=== PATIENT | female | born 1985 | race Caucasian/White ===

== ENCOUNTER 2018-12-15 09:32 | Observation (INO) | payer SELFPAY ==
[2018-12-15] MEDS: NORMAL SALINE 1000 ML 1,000 ML IV PRN ×2 (09:45→10:45)
[2018-12-15] MEDS ORDERED: NORMAL SALINE 250 ML IV PRN ×3 (09:52→19:17)
[2018-12-15 10:02] LABS: ABSOLUTE BASOPHILS # (AUTO) 0.1 10^3/uL (0.0-0.2); ABSOLUTE EOSINOPHILS # (AUTO) 0.3 10^3/uL (0.0-0.6); ABSOLUTE LYMPHOCYTES (AUTO) 2.4 10^3/uL (0.5-4.7); ABSOLUTE MONOCYTES (AUTO) 0.5 10^3/uL (0.1-1.4); ABSOLUTE NEUT (AUTO) 7.8 10^3/uL (1.7-8.2); BASOPHILS % (AUTO) 0.8 % (0-2); HEMATOCRIT 35.2 % (36.0-47.0); LYMPHOCYTES % (AUTO) 21.8 % (13-45); MEAN CORPUSCULAR HEMOGLOBIN 29.2 pg (27.0-33.4); MEAN CORPUSCULAR HGB CONC 34.1 g/dL (32.0-36.0); MEAN CORPUSCULAR VOLUME 86 fl (80-97); MONOCYTES % (AUTO) 4.1 % (3-13); PLATELET COUNT 328 10^3/uL (150-450); RED BLOOD COUNT 4.11 10^6/uL (3.72-5.28); SEGMENTED NEUTROPHILS % (AUTO) 70.3 % (42-78); TOTAL CELLS COUNTED % (AUTO) 100 %; WHITE BLOOD COUNT 11.1 10^3/uL (4.0-10.5)
[2018-12-15 10:10] LABS: INTERNATIONAL RATION (INR) 0.96; PROTHROMBIN TIME 13.2 SEC (11.4-15.4)
--- NOTE | 2018-12-15 10:22 | ER Document Report ---
ED General - General Chief Complaint: Vomiting Stated Complaint: DIZZINESS Time Seen by Provider: 12/15/18 09:51 - HPI Notes: Patient is a 33-year-old female that presents to the emergency department for chief complaint of hemoptysis and vaginal bleeding. Patient reports 3 episodes of bright red hemoptysis over the last week. She states that it is streaky without clots. She denied any coffee-ground emesis or history of upper GI bleeding in the past. Patient reports being and has had persistent nausea with this . She is at 12 weeks gestation with a due date of 06/29/19. Patient states she did have an ultrasound performed at another facility but when I asked where she states "I do not want to talk about this anymore". Patient will not tell me if it was another emergency room or the health department. She has not seen [employer] for this current . 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 Patient states she has not had any issues with her anemia in the last 2 years. She was on iron previously but was taken off of it. She reports a total of 28 blood transfusions 2 years ago during the issues with the tumor. She has had myomectomy which she states resolved a lot of her vaginal bleeding issues. She denied any history of cancer. Patient states last night she started having vaginal bleeding and today the bleeding has increased significantly and she is now passing blood clots as well. Past Medical History: Anemia Past Surgical History: Myomectomy Social History: Denies drugs alcohol and tobacco Family History: Reviewed and noncontributory for presenting illness Allergies: Reviewed, see documented allergy list. REVIEW OF SYSTEMS: CONSTITUTIONAL : No fever No chills No diaphoresis No recent illness EENT: No vision changes No congestion No sore throat CARDIOVASCULAR: No chest pain No palpitations RESPIRATORY: No shortness of breath No cough No difficulty breathing GASTROINTESTINAL: No abdominal pain nausea vomiting No diarrhea GENITOURINARY: No dysuria Vaginal bleeding No hematuria No difficulty urinating MUSCULOSKELETAL: No back pain No leg pain No arm pain SKIN: No rashes No lesions LYMPHATIC: No swollen, enlarged glands. NEUROLOGICAL: No lightheadedness No headache No weakness No paresthesias PSYCHIATRIC: No anxiety No depression PHYSICAL EXAMINATION: Vital signs reviewed, nursing noted reviewed. GENERAL: Well-appearing, obese and in moderate acute distress. HEAD: Atraumatic, normocephalic. EYES: Eyes appear normal, extraocular movements intact, sclera anicteric, conjunctiva are normal without paler. ENT: nares patent, oropharynx clear without exudates. Dry mucous membranes. NECK: Normal range of motion, supple without lymphadenopathy LUNGS: Breath sounds clear to auscultation bilaterally and equal. No wheezes rales or rhonchi. Tachypneic with no retractions HEART: Tachycardic rate and regular rhythm without murmurs, +2/4 bilateral radial pulses ABDOMEN: Soft, nontender, no palpable uterus, no rebound, guarding, or rigidity. No masses appreciated. : Normal external genitalia, active bright red vaginal bleeding with large blood clots, unable to visualize cervical loss due to bleeding, no uterine tenderness EXTREMITIES: Nontender, good range of motion, trace pretibial edema NEUROLOGICAL: No focal neurological deficits. Moves all extremities spontaneously Motor and sensory grossly intact on exam. PSYCH: Anxious and agitated SKIN: Warm, Dry, normal turgor, no rashes or lesions noted on exposed skin - Related Data Allergies/Adverse Reactions: ceftriaxone [From Rocephin] Allergy (Verified 12/15/18 09:36) Past Medical History - Social History Smoking Status: Never Smoker Family History: Reviewed & Not Pertinent Physical Exam - Vital signs Vitals: Temp Pulse BP Pulse Ox 99.0 F 181 H 73/38 L 100 12/15/18 09:40 12/15/18 09:40 12/15/18 09:40 12/15/18 09:40 Course - Re-evaluation Re-evalutation: 12/15/18 10:14 Vitals reviewed. Nursing notes reviewed. Patient is tachycardic at presentation. 2 large peripheral IVs were obtained, she was placed on the monitor, and started on IV hydration. 12/15/18 10:22 After 500 mL normal saline bolus patient's heart rate has improved to 125. Her blood pressure has remained stable. Pelvic exam does show active bleeding with large clots consistent with miscarriage. Patient's hemoglobin is stable at 12. She is mentating appropriately and appears less anxious than initial exam. 12/15/18 11:36 Patient reevaluated. Her heart rate is 136. She has received 1500 mL's of normal saline. Patient still feeling very lightheaded and has continued to have a large amount of vaginal bleeding. I discussed her care with Dr. Melgar who will come evaluate her in the ER for likely admission to the hospital. Given patient's tachycardia and persistent symptoms as well as active bleeding she will be transfused 1 unit packed red blood cells. 12/15/18 11:56 Dr. melgar evaluated the patient in the emergency room and will take her directly to the operating room for further management of her active bleeding. Patient in agreement with this plan of care. Laboratory 12/15/18 12/15/18 12/15/18 09:48 09:48 09:48 WBC 11.1 H RBC 4.11 Hgb 12.0 Hct 35.2 L MCV 86 MCH 29.2 MCHC 34.1 RDW 14.0 Plt Count 328 Seg Neutrophils % 70.3 Lymphocytes % 21.8 Monocytes % 4.1 Eosinophils % 3.0 Basophils % 0.8 Absolute Neutrophils 7.8 Absolute Lymphocytes 2.4 Absolute Monocytes 0.5 Absolute Eosinophils 0.3 Absolute Basophils 0.1 PT 13.2 INR 0.96 APTT 25.0 Sodium 136.5 L Potassium 3.9 Chloride 101 Carbon Dioxide 22 Anion Gap 14 BUN 8 Creatinine 0.61 Est GFR ( Amer) > 60 Est GFR (Non-Af Amer) > 60 Glucose 129 H POC Glucose Lactic Acid Calcium 9.8 Total Bilirubin 0.3 Direct Bilirubin 0.1 Neonat Total Bilirubin Not Reportable Neonat Direct Bilirubin Not Reportable Neonat Indirect Bili Not Reportable AST 29 ALT 37 Alkaline Phosphatase 41 Troponin I Total Protein 7.3 Albumin 4.2 Crossmatch 12/15/18 12/15/18 12/15/18 09:48 09:48 09:50 WBC RBC Hgb Hct MCV MCH MCHC RDW Plt Count Seg Neutrophils % Lymphocytes % Monocytes % Eosinophils % Basophils % Absolute Neutrophils Absolute Lymphocytes Absolute Monocytes Absolute Eosinophils Absolute Basophils PT INR APTT Sodium Potassium Chloride Carbon Dioxide Anion Gap BUN Creatinine Est GFR ( Amer) Est GFR (Non-Af Amer) Glucose POC Glucose 127 H Lactic Acid Calcium Total Bilirubin Direct Bilirubin Neonat Total Bilirubin Neonat Direct Bilirubin Neonat Indirect Bili AST ALT Alkaline Phosphatase Troponin I < 0.012 Total Protein Albumin Crossmatch See Detail 12/15/18 10:03 WBC RBC Hgb Hct MCV MCH MCHC RDW Plt Count Seg Neutrophils % Lymphocytes % Monocytes % Eosinophils % Basophils % Absolute Neutrophils Absolute Lymphocytes Absolute Monocytes Absolute Eosinophils Absolute Basophils PT INR APTT Sodium Potassium Chloride Carbon Dioxide Anion Gap BUN Creatinine Est GFR ( Amer) Est GFR (Non-Af Amer) Glucose POC Glucose Lactic Acid 2.4 H Calcium Total Bilirubin Direct Bilirubin Neonat Total Bilirubin Neonat Direct Bilirubin Neonat Indirect Bili AST ALT Alkaline Phosphatase Troponin I Total Protein Albumin Crossmatch Obstetrics Ultrasound 12/15/18 09:52 IMPRESSION: NO VISUALIZED INTRA- OR EXTRAUTERINE . bHCG LEVEL NOT AVAILABLE FOR CORRELATION WITH US FINDINGS. ECTOPIC CANNOT BE EXCLUDED. FOLLOW-UP ULTRASOUND AND SERIAL BHCG LEVELS STRONGLY RECOMMENDED TO ACCURATELY ASSESS STATUS. - Vital Signs Vital signs: Temp Pulse Resp BP Pulse Ox 99.0 F 181 H 20 111/62 99 12/15/18 09:40 12/15/18 09:40 12/15/18 10:35 12/15/18 10:35 12/15/18 10:35 - Laboratory Result Diagrams: 12/15/18 09:48 12/15/18 09:48 Laboratory results interpreted by me: 12/15/18 12/15/18 12/15/18 09:48 09:48 09:48 WBC 11.1 H Hct 35.2 L Sodium 136.5 L Glucose 129 H POC Glucose Lactic Acid Crossmatch See Detail 12/15/18 12/15/18 09:50 10:03 WBC Hct Sodium Glucose POC Glucose 127 H Lactic Acid 2.4 H Crossmatch - EKG Interpretation by Me Additional EKG results interpreted by me: 12/15/18 10:23 Interpreted by myself [id number]: Sinus tachycardia, rate 132, normal axis, no ectopy, no STEMI Critical Care Note - Critical Care Note Comments: Critical care time 35 exclusive from separate billable procedures for a patient requiring complex medical decision making, and high potential for clinical deterioration. Time spent obtaining history from patient or surrogate, discussions with consultants, development of treatment plan with patient or surrogate, evaluation of patient's response to treatment, examination of patient, ordering and performing treatments and interventions, ordering and review of laboratory studies, re-evaluation of patient's condition, ordering and review of radiographic studies and review of old charts Discharge - Discharge Clinical Impression: Vaginal bleeding, Tachycardia, Lightheadedness Condition: Stable Disposition: ADMITTED INPATIENT Admitting Provider: [facility] Admitted: OR
[2018-12-15 10:24] LABS: ALANINE AMINOTRANSFERASE 37 U/L (9-52); ALBUMIN 4.2 g/dL (3.5-5.0); ALKALINE PHOSPHATASE 41 U/L (38-126); ANION GAP 14 (5-19); ASPARTATE AMINO TRANSFERASE 29 U/L (14-36); BILIRUBIN,DIRECT 0.1 mg/dL (0.0-0.4); BILIRUBIN,TOTAL 0.3 mg/dL (0.2-1.3); BLOOD UREA NITROGEN 8 mg/dL (7-20); CALCIUM 9.8 mg/dL (8.4-10.2); CARBON DIOXIDE 22 mmol/L (22-30); CHLORIDE 101 mmol/L (98-107); GLUCOSE 129 mg/dL (75-110); POTASSIUM 3.9 mmol/L (3.6-5.0); SODIUM 136.5 mmol/L (137-145); TOTAL PROTEIN 7.3 g/dL (6.3-8.2)
[2018-12-15] MEDS ORDERED: MORPHINE SULFATE 10 MG/ML INJ IV ONE (10:30)
--- NOTE | 2018-12-15 11:24 | RADIOLOGY REPORT (SQ) ---
EXAM DESCRIPTION: U/S OB TRANSVAGINAL W/O DOP COMPLETED DATE/TIME: 12/15/2018 11:17 am REASON FOR STUDY: vaginal bleeding COMPARISON: None. TECHNIQUE: Transvaginal static and realtime grayscale images acquired of the pelvis. Additional neida cted spectral and color Doppler images recorded. All images stored on PACs. CLINICAL AGE: 12 weeks BHCG: Not available. LIMITATIONS: None. FINDINGS: UTERUS: No visualized intrauterine . RIGHT ADNEXA: Ovary not identified due to poor acoustical window. No adnexal free fluid. No adnexal masses. LEFT ADNEXA: Ovary not identified due to poor acoustical window. No adnexal free fluid. No adnexal masses. FREE FLUID: None. OTHER: No other significant finding. IMPRESSION: NO VISUALIZED INTRA- OR EXTRAUTERINE . bHCG LEVEL NOT AVAILABLE FOR CORRELATION WITH US FINDINGS. ECTOPIC CANNOT BE EXCLUDED. FOLLOW-UP ULTRASOUND AND SERIAL BHCG LEVELS STRONGLY RECOMMENDED TO ACCURATELY ASSESS STATU S. TECHNICAL DOCUMENTATION: JOB ID: [id number] [employer]- All Rights Reserved Reading location - IP/workstation name: [email or web address]
[2018-12-15] MEDS ORDERED: MISOPROSTOL 0.1 MG TABLET VG ONE ×2 (11:47→12:00)
[2018-12-15] MEDS ORDERED: MISOPROSTOL 0.1 MG TABLET PR ONE ×2 (11:55→12:00)
[2018-12-15] MEDS ORDERED: SUCCINYLCHOLINE CHLORIDE INJ 200 MG/10 ML VIAL ONE (12:02)
[2018-12-15] MEDS ORDERED: HYDROMORPHONE HCL INJ/PF 2 MG/ML AMPULE IV ONE ×2 (12:12→19:53)
[2018-12-15] MEDS ORDERED: MISOPROSTOL 0.2 MG TABLET PR ONE (12:15)
[2018-12-15] MEDS ORDERED: DOXYCYCLINE HYCLATE 100 MG in DEXTROSE 5%-WATER 250 ML IV ONE (12:45)
[2018-12-15] MEDS ORDERED: PROPOFOL INJ 200 MG/20 ML VIAL IV ONE (12:47)
[2018-12-15] MEDS ORDERED: MIDAZOLAM 2 MG/2 ML INJ ONE (12:47)
[2018-12-15] MEDS ORDERED: FENTANYL CITRATE INJ/PF 100 MCG/2 ML AMPUL ONE (12:47)
[2018-12-15] MEDS ORDERED: NORMAL SALINE 1000 ML 1,000 ML IV ONE (12:58)
[2018-12-15] MEDS ORDERED: MEPERIDINE HCL/PF INJ 25 MG/1 ML DISP.SYRIN IV PRN (13:13)
[2018-12-15] MEDS ORDERED: MORPHINE SULFATE 10 MG/ML INJ IV PRN (13:13)
[2018-12-15] MEDS ORDERED: FENTANYL CITRATE INJ/PF 100 MCG/2 ML AMPUL IV PRN ×3 (13:13)
[2018-12-15] MEDS ORDERED: DIPHENHYDRAMINE HCL 50 MG/ML VIAL IV PRN (13:13)
[2018-12-15] MEDS ORDERED: PROMETHAZINE HCL INJ 25 MG/1 ML VIAL IV PRN (13:13)
[2018-12-15] MEDS ORDERED: MISOPROSTOL 0.2 MG TABLET ONE (13:15)
[2018-12-15] MEDS ORDERED: METHYLERGONOVINE MALEATE INJ/PF 0.2 MG/1 ML AMPULE ONE (13:15)
--- NOTE | 2018-12-15 13:39 | Operative Report ---
Operative Report DATE OF SURGERY: 12/15/18 PREOPERATIVE DIAGNOSIS: 1. Incomplete at 12 weeks. 2. Rh+. 3. Tac hycardia POSTOPERATIVE DIAGNOSIS: Same OPERATION: Suction dilatation and curettage SURGEON: BAYRNO SAMPSON ANESTHESIA: GA TISSUE REMOVED OR ALTERED: Products of conception COMPLICATIONS: None ESTIMATED BLOOD LOSS: 200 ml INTRAOPERATIVE FINDINGS: Uterus sounded 10 cm; moderate amount of products of conception; used 8 mm curved Slovenian curette PROCEDURE: After appropriate consents had been obtained, the patient was taken to the Operating Room where general anesthesia was placed without difficulty. She was prepped and draped in the normal sterile fashion in the dorsal lithotomy position. Exam under anesthesia was performed with an 10 week sized uterus and no adnexal pathology palpable. Straight catheter urine was obtained and approximately 25 mL of urine. A speculum was placed in the vagina. The anterior lip the cervix was grasped with a single-tooth tenaculum. The uterus sounded to 10 cm. The patient cervix was already dilated approximately 2 cm. A Size 8 suction catheter was introduced and products of conception were removed. The suction catheter was removed and gentle curettage was then undertaken throughout the cavity. The suction catheter was introduced once again and additional products of conception and blood clot were removed. The curette was once again introduced and the cavity was,felt to be empty of further tissue. All instruments were then removed. The uterus was hemostatic. Monsel's was used to gain hemostasis of the tenaculum site. Sponge and instrument counts were correct x2. Patient was given doxycycline 100 mg IV piggyback intraoperatively, as well as Methergine 0.2 mg IM. Patient tolerated procedure well and transferred to recovery in stable condition.
[2018-12-15] MEDS ORDERED: KETOROLAC TROMETHAMINE INJ/PF 30 MG/1 ML SDV ONE (13:49)
[2018-12-15] MEDS: FENTANYL CITRATE INJ/PF 100 MCG/2 ML AMPUL ONE ×2 (13:50→14:10)
[2018-12-15] MEDS: PROMETHAZINE HCL INJ 25 MG/1 ML VIAL ONE ×2 (14:02→14:15)
[2018-12-15] MEDS ORDERED: OXYCODONE-ACETAMINOPHEN 5-325 MG TABLET PO PRN (14:46)
[2018-12-15] MEDS ORDERED: ONDANSETRON HCL INJ/PF 4 MG/2 ML SDV IV PRN (14:46)
[2018-12-15 14:58] LABS: HEMATOCRIT 24.7 % (36.0-47.0); MEAN CORPUSCULAR HEMOGLOBIN 29.3 pg (27.0-33.4); MEAN CORPUSCULAR HGB CONC 33.9 g/dL (32.0-36.0); MEAN CORPUSCULAR VOLUME 87 fl (80-97); PLATELET COUNT 263 10^3/uL (150-450); RED BLOOD COUNT 2.86 10^6/uL (3.72-5.28); RED CELL DISTRIBUTION WIDTH 13.7 % (11.5-14.0); WHITE BLOOD COUNT 9.5 10^3/uL (4.0-10.5)
[2018-12-15 15:00] LABS: HEMOGLOBIN 8.4 g/dL (12.0-15.5)
[2018-12-15] MEDS ORDERED: OXYCODONE-ACETAMINOPHEN 5-325 MG TABLET ONE (15:31)
[2018-12-15] MEDS: OXYCODONE-ACETAMINOPHEN 5-325 MG TABLET PO PRN ×3 (16:00→22:54)
[2018-12-15 16:56] LABS: APPEARANCE,URINE SLIGHTLY-CLOUDY; BILIRUBIN,URINE NEGATIVE (NEGATIVE); COLOR,URINE RED; GLUCOSE, URINE 50 mg/dL (NEGATIVE); KETONES,URINE TRACE mg/dL (NEGATIVE); LEUKOCYTE ESTERASE,URINE TRACE (NEGATIVE); NITRITE,URINE NEGATIVE (NEGATIVE); PROTEIN,URINE 100 mg/dL (NEGATIVE); URINE SPECIFIC GRAVITY 1.009; UROBILINOGEN,URINE NEGATIVE mg/dL (<2.0)
[2018-12-15] MEDS ORDERED: IRON SUCROSE COMPLEX 100 MG in NORMAL SALINE 100 ML IV ONE (17:00)
[2018-12-15] MEDS ORDERED: FUROSEMIDE INJ/PF 20 MG/2 ML SDV IV ONE (19:20)
[2018-12-15] MEDS ORDERED: IBUPROFEN 800 MG TABLET PO PRN (19:26)
[2018-12-15] MEDS ORDERED: HYDROMORPHONE HCL INJ/PF 2 MG/ML AMPULE ONE (19:57)
[2018-12-15] MEDS ORDERED: FUROSEMIDE INJ/PF 40 MG/4 ML SDV ONE (20:03)
--- NOTE | 2018-12-15 21:24 | EKG REPORT ---
SEVERITY:- OTHERWISE NORMAL ECG - SINUS TACHYCARDIA : Confirmed by: Radha Avalos MD 15-Dec-2018 21:22:25
[2018-12-16 01:29] LABS: ABSOLUTE LYMPHOCYTES (AUTO) 1.7 10^3/uL (0.5-4.7); ABSOLUTE MONOCYTES (AUTO) 0.2 10^3/uL (0.1-1.4); ABSOLUTE NEUT (AUTO) 6.6 10^3/uL (1.7-8.2); BASOPHILS % (AUTO) 0.5 % (0-2); EOSINOPHILS % (AUTO) 0.5 % (0-6); HEMATOCRIT 22.6 % (36.0-47.0); LYMPHOCYTES % (AUTO) 19.9 % (13-45); MEAN CORPUSCULAR HEMOGLOBIN 30.1 pg (27.0-33.4); MEAN CORPUSCULAR HGB CONC 35.5 g/dL (32.0-36.0); MEAN CORPUSCULAR VOLUME 85 fl (80-97); MONOCYTES % (AUTO) 2.6 % (3-13); PLATELET COUNT 191 10^3/uL (150-450); RED BLOOD COUNT 2.67 10^6/uL (3.72-5.28); SEGMENTED NEUTROPHILS % (AUTO) 76.5 % (42-78); TOTAL CELLS COUNTED % (AUTO) 100 %; WHITE BLOOD COUNT 8.6 10^3/uL (4.0-10.5)
[2018-12-16] MEDS ORDERED: HYDROMORPHONE HCL INJ/PF 2 MG/ML AMPULE IV ONE (03:00)
--- NOTE | 2018-12-16 05:06 | PDOC DISCHARGE SUMMARY ---
General - Admit/Disc Date/PCP Admission Date/Primary Care Provider: 12/15/18 12:09 Discharge Date: 12/16/18 - Discharge Diagnosis (1) Acute anemia Is this a current diagnosis for this admission?: Yes (2) Incomplete Is this a current diagnosis for this admission?: Yes (3) Lightheadedness Is this a current diagnosis for this admission?: Yes (4) Tachycardia Is this a current diagnosis for this admission?: Yes (5) Vaginal bleeding Is this a current diagnosis for this admission?: Yes - Additional Information Resuscitation Status: Full Code Discharge Diet: As Tolerated Discharge Activity: Activity As Tolerated, No Lifting Over 10 Pounds, No Lifting/Push/Pulling, Pelvic Rest History of Present Illness Patient complains of: Heavy vaginal bleeding History of Present Illness: ISRAEL BERGERON is a 33 year old with a "twin " IUP at 12 weeks per LMP. Pt stated that she started bleeding heavily on Saturday night and presented to the ED on Saturday morning. She states that she was weak and SOB. She underwent a pelvic US, which showed nothing in the uterus. She had perfuse vaginal bleeding on examination and taken to the OR for a SDC. There was a large amount of products of conception during the SDC. Her admission Hb was 12 and her postop Hb was 8.4. Pt was ready for discharge but still complaining of dizziness. She had SVT and therefore, I put her in for observation, on telemetry. She received (1) unit of PRBCs and additional fluids. Her tachycardia has resolved. Hospital Course Hospital Course: Her hospital course was essentially uneventful. She continues to complain of pain/cramping. Her bleeding is scant. Pt denies F/C, N/V, CP and SOB. Physical Exam - Physical Exam Vital Signs: Temp Pulse Resp BP Pulse Ox 97.9 F 111 H 20 113/54 L 98 12/16/18 03:25 12/16/18 03:25 12/16/18 03:25 12/16/18 03:25 12/16/18 03:25 Intake & Output 12/14/18 12/15/18 12/16/18 06:59 06:59 06:59 Intake Total 4650 Output Total 225 Balance 4425 Weight 108.4 kg General appearance: PRESENT: no acute distress Respiratory exam: PRESENT: clear to auscultation quyen Cardiovascular exam: PRESENT: RRR GI/Abdominal exam: PRESENT: normal bowel sounds, soft Extremities exam: ABSENT: calf tenderness, clubbing, full ROM, joint swelling, pedal edema, tenderness, +1 edema, +2 edema, other Result Laboratory Results: 12/16/18 01:20 12/15/18 09:48 12/15/18 12/15/18 12/15/18 09:48 09:48 09:48 WBC 11.1 H RBC 4.11 Hgb 12.0 Hct 35.2 L MCV 86 MCH 29.2 MCHC 34.1 RDW 14.0 Plt Count 328 Seg Neutrophils % 70.3 Lymphocytes % 21.8 Monocytes % 4.1 Eosinophils % 3.0 Basophils % 0.8 Absolute Neutrophils 7.8 Absolute Lymphocytes 2.4 Absolute Monocytes 0.5 Absolute Eosinophils 0.3 Absolute Basophils 0.1 Sodium 136.5 L Potassium 3.9 Chloride 101 Carbon Dioxide 22 Anion Gap 14 BUN 8 Creatinine 0.61 Est GFR ( Amer) > 60 Est GFR (Non-Af Amer) > 60 Glucose 129 H Lactic Acid Calcium 9.8 Total Bilirubin 0.3 AST 29 ALT 37 Alkaline Phosphatase 41 Total Protein 7.3 Albumin 4.2 Urine Color Urine Appearance Urine pH Ur Specific [place] Urine Protein Urine Glucose (UA) Urine Ketones Urine Blood Urine Nitrite Ur Leukocyte Esterase Urine WBC (Auto) Urine RBC (Auto) Blood Type A POSITIVE Antibody Screen POSITIVE 12/15/18 12/15/18 12/15/18 10:03 11:40 14:27 WBC 9.5 RBC 2.86 L Hgb 8.4 L D Hct 24.7 L MCV 87 MCH 29.3 MCHC 33.9 RDW 13.7 Plt Count 263 Seg Neutrophils % Lymphocytes % Monocytes % Eosinophils % Basophils % Absolute Neutrophils Absolute Lymphocytes Absolute Monocytes Absolute Eosinophils Absolute Basophils Sodium Potassium Chloride Carbon Dioxide Anion Gap BUN Creatinine Est GFR ( Amer) Est GFR (Non-Af Amer) Glucose Lactic Acid 2.4 H Calcium Total Bilirubin AST ALT Alkaline Phosphatase Total Protein Albumin Urine Color RED Urine Appearance SLIGHTLY-CLOUDY Urine pH 7.0 Ur Specific [place] 1.009 Urine Protein 100 H Urine Glucose (UA) 50 H Urine Ketones TRACE H Urine Blood LARGE H Urine Nitrite NEGATIVE Ur Leukocyte Esterase TRACE H Urine WBC (Auto) 25 Urine RBC (Auto) >182 Blood Type Antibody Screen 12/16/18 01:20 WBC 8.6 RBC 2.67 L Hgb 8.0 L Hct 22.6 L MCV 85 MCH 30.1 MCHC 35.5 RDW 14.0 Plt Count 191 Seg Neutrophils % 76.5 Lymphocytes % 19.9 Monocytes % 2.6 L Eosinophils % 0.5 Basophils % 0.5 Absolute Neutrophils 6.6 Absolute Lymphocytes 1.7 Absolute Monocytes 0.2 Absolute Eosinophils 0.0 Absolute Basophils 0.0 Sodium Potassium Chloride Carbon Dioxide Anion Gap BUN Creatinine Est GFR ( Amer) Est GFR (Non-Af Amer) Glucose Lactic Acid Calcium Total Bilirubin AST ALT Alkaline Phosphatase Total Protein Albumin Urine Color Urine Appearance Urine pH Ur Specific [place] Urine Protein Urine Glucose (UA) Urine Ketones Urine Blood Urine Nitrite Ur Leukocyte Esterase Urine WBC (Auto) Urine RBC (Auto) Blood Type Antibody Screen 12/15/18 09:48 Troponin I < 0.012 Impressions: Obstetrics Ultrasound 12/15/18 09:52 IMPRESSION: NO VISUALIZED INTRA- OR EXTRAUTERINE . bHCG LEVEL NOT AVAILABLE FOR CORRELATION WITH US FINDINGS. ECTOPIC CANNOT BE EXCLUDED. FOLLOW-UP ULTRASOUND AND SERIAL BHCG LEVELS STRONGLY RECOMMENDED TO ACCURATELY ASSESS STATUS. Plan Discharge Plan: 1. Discharge home 2. F/U in the office in 2 weeks 3. Rx Zofran and Percocet Time Spent: Greater than 30 Minutes
--- NOTE | 2018-12-16 05:22 | PDOC H&P ---
History of Present Illness Admission Date/PCP: 12/15/18 12:09 Patient complains of: heavy vaginal bleeding History of Present Illness: This 33 yo presented to the ED c/o heavy vaginal bleeding. She stated that she was 12 weeks with twins. She was evaluated in the ED and had perfuse bleeding and hypotension. Pelvic US showed nothing n the uterus. Pt was taken to the OR for a SDC and there was a large amt ofr POC evacuated. She developed tachycardia and was observed on telemetry. Past Medical History Gynecological Infection: No 1 Delivery: Spontaneous Vaginal Delivery 2 Spontaneous Weeks: 12 Past Surgical History Past Surgical History: myomectomy Social History Lives with: Spouse/Significant other Smoking Status: Never Smoker Frequency of Alcohol Use: Rare Hx Recreational Drug Use: No - Advance Directive Resuscitation Status: Full Code Family History Family History: Reviewed & Not Pertinent Parental Family History Reviewed: Yes Children Family History Reviewed: NA Sibling(s) Family History Reviewed.: NA Medication/Allergy Allergies/Adverse Reactions: ceftriaxone [From Rocephin] Allergy (Verified 12/15/18 09:36) Physical Exam - Physical Exam Vital Signs: Temp Pulse Resp BP Pulse Ox 97.9 F 111 H 20 113/54 L 98 12/16/18 03:25 12/16/18 03:25 12/16/18 03:25 12/16/18 03:25 12/16/18 03:25 Intake & Output 12/14/18 12/15/18 12/16/18 06:59 06:59 06:59 Intake Total 4650 Output Total 225 Balance 4425 Weight 108.4 kg General appearance: PRESENT: severe distress Respiratory exam: PRESENT: clear to auscultation quyen Cardiovascular exam: PRESENT: RRR, tachycardia GI/Abdominal exam: PRESENT: normal bowel sounds, soft Extremities exam: ABSENT: calf tenderness, clubbing, full ROM, joint swelling, pedal edema, tenderness, +1 edema, +2 edema, other - Gynecological Exam Vagina: other - large bleeding Result Laboratory Results: 12/16/18 01:20 12/15/18 09:48 12/15/18 12/15/18 12/15/18 09:48 09:48 09:48 WBC 11.1 H RBC 4.11 Hgb 12.0 Hct 35.2 L MCV 86 MCH 29.2 MCHC 34.1 RDW 14.0 Plt Count 328 Seg Neutrophils % 70.3 Lymphocytes % 21.8 Monocytes % 4.1 Eosinophils % 3.0 Basophils % 0.8 Absolute Neutrophils 7.8 Absolute Lymphocytes 2.4 Absolute Monocytes 0.5 Absolute Eosinophils 0.3 Absolute Basophils 0.1 Sodium 136.5 L Potassium 3.9 Chloride 101 Carbon Dioxide 22 Anion Gap 14 BUN 8 Creatinine 0.61 Est GFR ( Amer) > 60 Est GFR (Non-Af Amer) > 60 Glucose 129 H Lactic Acid Calcium 9.8 Total Bilirubin 0.3 AST 29 ALT 37 Alkaline Phosphatase 41 Total Protein 7.3 Albumin 4.2 Urine Color Urine Appearance Urine pH Ur Specific [place] Urine Protein Urine Glucose (UA) Urine Ketones Urine Blood Urine Nitrite Ur Leukocyte Esterase Urine WBC (Auto) Urine RBC (Auto) Blood Type A POSITIVE Antibody Screen POSITIVE 12/15/18 12/15/18 12/15/18 10:03 11:40 14:27 WBC 9.5 RBC 2.86 L Hgb 8.4 L D Hct 24.7 L MCV 87 MCH 29.3 MCHC 33.9 RDW 13.7 Plt Count 263 Seg Neutrophils % Lymphocytes % Monocytes % Eosinophils % Basophils % Absolute Neutrophils Absolute Lymphocytes Absolute Monocytes Absolute Eosinophils Absolute Basophils Sodium Potassium Chloride Carbon Dioxide Anion Gap BUN Creatinine Est GFR ( Amer) Est GFR (Non-Af Amer) Glucose Lactic Acid 2.4 H Calcium Total Bilirubin AST ALT Alkaline Phosphatase Total Protein Albumin Urine Color RED Urine Appearance SLIGHTLY-CLOUDY Urine pH 7.0 Ur Specific [place] 1.009 Urine Protein 100 H Urine Glucose (UA) 50 H Urine Ketones TRACE H Urine Blood LARGE H Urine Nitrite NEGATIVE Ur Leukocyte Esterase TRACE H Urine WBC (Auto) 25 Urine RBC (Auto) >182 Blood Type Antibody Screen 12/16/18 01:20 WBC 8.6 RBC 2.67 L Hgb 8.0 L Hct 22.6 L MCV 85 MCH 30.1 MCHC 35.5 RDW 14.0 Plt Count 191 Seg Neutrophils % 76.5 Lymphocytes % 19.9 Monocytes % 2.6 L Eosinophils % 0.5 Basophils % 0.5 Absolute Neutrophils 6.6 Absolute Lymphocytes 1.7 Absolute Monocytes 0.2 Absolute Eosinophils 0.0 Absolute Basophils 0.0 Sodium Potassium Chloride Carbon Dioxide Anion Gap BUN Creatinine Est GFR ( Amer) Est GFR (Non-Af Amer) Glucose Lactic Acid Calcium Total Bilirubin AST ALT Alkaline Phosphatase Total Protein Albumin Urine Color Urine Appearance Urine pH Ur Specific [place] Urine Protein Urine Glucose (UA) Urine Ketones Urine Blood Urine Nitrite Ur Leukocyte Esterase Urine WBC (Auto) Urine RBC (Auto) Blood Type Antibody Screen 12/15/18 09:48 Troponin I < 0.012 Impressions: Obstetrics Ultrasound 12/15/18 09:52 IMPRESSION: NO VISUALIZED INTRA- OR EXTRAUTERINE . bHCG LEVEL NOT AVAILABLE FOR CORRELATION WITH US FINDINGS. ECTOPIC CANNOT BE EXCLUDED. FOLLOW-UP ULTRASOUND AND SERIAL BHCG LEVELS STRONGLY RECOMMENDED TO ACCURATELY ASSESS STATUS. Assessment & Plan - Diagnosis (1) Acute anemia Is this a current diagnosis for this admission?: Yes (2) Incomplete Is this a current diagnosis for this admission?: Yes (3) Lightheadedness Is this a current diagnosis for this admission?: Yes (4) Tachycardia Is this a current diagnosis for this admission?: Yes (5) Vaginal bleeding Is this a current diagnosis for this admission?: Yes - Time Time Spent: Greater than 70 Minutes Critical Time spent with patient: 35 or more minutes Medications reviewed and adjusted accordingly: Yes Anticipated discharge: Home Within: within 24 hours - Inpatient Certification I certify that my determination is in accordance with my understanding of Medicare's requirements for reasonable and necessary INPATIENT services [42 CFR 412.3e].: Yes Medical Necessity: Need For IV Fluids, Need For Continuous Telemetry Monitoring, Need for Pain Control, Need for Surgery Post Hospital Care: D/C or Transfer Summary
[2018-12-16 07:05] VITALS: BP 119/74
== END 2018-12-16 07:05 | disposition home or self-care (01) ==
LOC: ER 09:32 → EH 12:09 → INTOOBSV 12:09 → INOR 13:00 → 3W 21:00 → UNDODISIN 12-16 07:05
PROVIDERS: ADMIT Obstetrics & Gynecology; ATTEND Surgery
PROC: 30233N1 Transfusion of Nonautologous Red Blood Cells into Peripheral Vein, Percutaneous Approach (ICD-10-PCS; 2018-12-15)
PROC: 10D17Z9 Manual Extraction of Products of Conception, Retained, Via Natural or Artificial Opening (ICD-10-PCS; principal; 2018-12-15 12:30)
DX: O03.1 Delayed or excessive hemorrhage following incomplete spontaneous abortion (principal); O03.39 Incomplete spontaneous abortion with other complications; D64.9 Anemia, unspecified; I47.1 Supraventricular tachycardia; R42 Dizziness and giddiness; I95.9 Hypotension, unspecified; R45.1 Restlessness and agitation; Z98.890 Other specified postprocedural states; Z87.42 Personal history of other diseases of the female genital tract; Z86.2 Personal history of diseases of the blood and blood-forming organs and certain disorders involving the immune mechanism; Z67.90 Unspecified blood type, Rh positive
CPT/HCPCS: 93005; 99291; 96361; 96374; 86900; 86901; 36415 ×2; 87040; 36430; 86870; 86850; 86922; 82962; 84702; 85025 ×2; 85027; 85610; 85730; 80053; 81001; 84484; 86920; 83605; 86902 ×2; 88305 ×2; 76817; 93010; 59812; G0378 ×3; P9016; J2250; J1756; J3010; J1940 ×2; J2210; J1885; J2270; J1170 ×2; J2550; J0330; J2405; J7030; J2704; 1965